=== PATIENT | male | born 1935 | race Caucasian/White ===

== ENCOUNTER 2017-01-13 02:05 | Emergency (ER) | payer MEDICARE, OTHER ==
[~2017-01-13] VITALS: Ht 185.4 cm; Wt 104.0 kg
[2017-01-13] MEDS ORDERED: KETOROLAC 30MG/ML VIAL IM SCH (04:00)
[2017-01-13] MEDS ORDERED: ONDANSETRON 4MG ODT PO SCH (04:00)
[2017-01-13] MEDS ORDERED: TETANUS, DIPHTHERIA, PERTUSSIS VAC/PF 0.5ML (>7YR OLD) IM ONE (04:00)
[2017-01-13 06:50] VITALS: BP 118/71
== END 2017-01-13 08:17 | disposition home or self-care (01) ==
LOC: ER 02:06
DX: S39.012A Strain of muscle, fascia and tendon of lower back, initial encounter (principal); M25.512 Pain in left shoulder; J44.9 Chronic obstructive pulmonary disease, unspecified; I10 Essential (primary) hypertension; E11.9 Type 2 diabetes mellitus without complications; V79.88XA Bus occupant (driver) (passenger) injured in other specified transport accidents, initial encounter; Y93.89 Activity, other specified; Y92.89 Other specified places as the place of occurrence of the external cause; Y99.8 Other external cause status
CPT/HCPCS: 71010; 72040; 72100; 73030; 82962; 90471; 90715; 93005; 96372; 99284; J1885; Q0162